=== PATIENT | male | born 2000 | race Two or more races ===

== ENCOUNTER 2022-04-06 20:38 | Emergency (ER) | payer BC ==
[~2022-04-06] VITALS: Ht 182.9 cm; Wt 70.3 kg
[2022-04-06] MEDS ORDERED: PROCHLORPERAZINE EDISYLATE 10 MG/2 ML VIAL IV ONE (21:15)
[2022-04-06] MEDS ORDERED: IV NS 1000 ML 1,000 ML IV ONE ×3 (21:15)
[2022-04-06 21:28] LABS: HEMATOCRIT 47.7 % (36.7-47.1); MEAN CORPUSCULAR HEMOGLOBIN 27.3 uug (23.8-33.4); MEAN CORPUSCULAR VOLUME 80.8 fL (73.0-96.2); PLATELET COUNT (AUTO) 293 K/uL (152-348)
[2022-04-06 21:30] LABS: CREATININE 1.3 mg/dL (0.6-1.3); POTASSIUM 3.7 mmol/L (3.5-5.1)
[2022-04-06 21:36] LABS: BILIRUBIN,DIRECT 0.3 mg/dL (0.0-0.2); BILIRUBIN,TOTAL 1.5 mg/dL (0.2-1.0); TOTAL PROTEIN, SERUM 9.2 g/dL (6.4-8.2)
[2022-04-06] MEDS ORDERED: PROCHLORPERAZINE EDISYLATE 10 MG/2 ML VIAL ONE (22:00)
[2022-04-06] MEDS: MAGNESIUM SULFATE/D5W 100 ML IV SCH ×2 (22:09→22:29)
[2022-04-06] MEDS ORDERED: ONDANSETRON 4 MG/2 ML VIAL IV ONE (23:30)
[2022-04-06] MEDS ORDERED: ONDANSETRON 4 MG/2 ML VIAL ONE (23:30)
--- NOTE | 2022-04-06 23:42 | NUR ---
Patient refused Zofran 4mg and stated that he does not want it because he is no longer feeling nauseous
[2022-04-07] MEDS ORDERED: PROC10TA29 PO (01:00)
[2022-04-07 01:29] VITALS: BP 125/62
== END 2022-04-07 01:29 | disposition home or self-care (01) ==
LOC: ER 20:42
DX: A08.4 Viral intestinal infection, unspecified (principal); E86.0 Dehydration; E87.20 Acidosis, unspecified
CPT/HCPCS: 99285; 96365; 96361; 96375; 80076; 80048; 83735; 85025; 36415; 83605 ×2; 83970; J0780; J7040 ×2; A4663; J2405